=== PATIENT | male | born 1965 | race Caucasian/White ===

== ENCOUNTER 2016-08-20 08:06 | Emergency (ER) | payer OTHER ==
[~2016-08-20] VITALS: Ht 180.3 cm; Wt 60.8 kg
[~2016-08-20 08:06] MED LIST: BUSP15TA60; QUET300T14
[2016-08-20] MEDS ORDERED: KETOROLAC TROMETH 60MG/2ML VIAL IM ONE (10:00)
[2016-08-20 11:00] VITALS: BP 115/78
== END 2016-08-20 11:01 | disposition home or self-care (01) ==
LOC: EDUNIT# 08:06 → ER 08:06
CPT/HCPCS: 72070 ×2; 96372 ×2; 99284; J1885 ×2